=== PATIENT | male | born 1975 | race Caucasian/White ===

== ENCOUNTER 2019-08-24 10:09 | Emergency (ER) | payer BC, SELFPAY ==
[2019-08-24 10:11] VITALS: BP 150/94; PULSE 110; RESP 18; TEMP 36.9; O2SAT 97; BMI 34.3
[2019-08-24 10:17] VITALS: O2SAT 96
--- NOTE | 2019-08-24 10:25 | RAD_ITS ---
STUDY: X-RAY CHEST REASON FOR EXAM: Male, 44 years old. Chest pain. TECHNIQUE: Single AP portable view of the chest. COMPARISON: None. FINDINGS: There is minimal subsegmental atelectasis in the left lung base. There is no demonstrated pleural abnormality. Normal size heart. Normal mediastinum and derick. Normal visualized pulmonary arteries. Normal visualized aortic arch and descending thoracic aorta. The thoracic spine is suboptimally visualized. Normal visualized ribs, clavicles, and shoulders. There is no demonstrated abnormality of the visualized soft tissue structures of the upper abdomen. RAD/Chest 1 View (Portable) IMPRESSION: Minimal atelectatic changes in the left lung base. Electronically Signed: Dennis Peralta MD at 10:38 EST Tel , Service support ,
--- NOTE | 2019-08-24 10:25 | EKG12_ITS ---
Test Reason : CP Blood Pressure : / mmHG Vent. Rate : 112 BPM Atrial Rate : 112 BPM P-R Int : 168 ms QRS Dur : 082 ms QT Int : 322 ms P-R-T Axes : 056 008 039 degrees QTc Int : 439 ms Sinus tachycardia Otherwise normal ECG Confirmed by LEXIE GUILLAUME, EMMANUELLE ([id number]), editor publications COLEEN REY ([id number]) on 08/26/2019 2:23:33 PM Referred By: ADELINE Confirmed By:EMMANUELLE OWEN MD
[2019-08-24 10:30] LABS: Absolute Neutrophil Count 6.2 X10^3/uL (2.0-7.7); Basophil# 0.02 X10^3/uL; Basophil% 0.2 % (0-1); Eosinophil# 0.02 X10^3/uL; Eosinophils% 0.2 % (0-5); Hematocrit 45.7 % (40-54); Hemoglobin 15.8 g/dL (13.0-16.5); Lymphocyte % 22.9 % (19-41); Mean Corp Hgb Conc 34.6 g/dL (32-36); Mean Corpuscular Hgb 31.5 pg (27.0-32.0); Mean Corpuscular Volume 91.2 fL (80-94); Mean Platelet Vol. 8.9 fl (6.2-12.0); Monocyte% 8.7 % (0-10); NRBC Flagged by Analyzer 0 % (0-5); Neutrophil # 6.18 X10^3/uL (2.7-7.7); Neutrophil % 67.6 % (47-70); Platelet Count 246 K/mm3 (150-450); RBC Distribution Width SD 40.3 fl (35.1-43.9); Red Blood Count 5.01 M/mm3 (4.6-6.2); White Blood Count 9.2 K/mm3 (4.4-11.0)
[2019-08-24 10:47] LABS: ALB/GLOB Ratio 1.1 RATIO (0.9-2.4); AST(SGOT) 21 U/L (15-37); Alanine Aminotransfer ALT/SGPT 38 U/L (16-61); Albumin, Serum 3.8 g/dL (3.2-5.0); Alkaline Phosphatase 105 U/L (45-117); Anion Gap 8 (5-15); BUN 13 mg/dL (7-18); BUN/Creat Ratio 11.5 RATIO (10-20); Calcium,Total 8.6 mg/dL (8.5-10.1); Chloride 107 mmol/L (98-107); Creatinine, Serum 1.13 mg/dL (0.70-1.30); EST Glomerular Filtration Rate 76 mL/min (>60); Est Glom Filt Rate - Afr Amer 91 mL/min (>60); Estimated Creatinine Clearance 85.16 ml/min; Globulin 3.4 g/dL (2.2-4.2); Glucose 140 mg/dL (74-106); Protein, Total 7.2 g/dL (6.4-8.2); Sodium Level 139 mmol/L (136-145)
--- NOTE | 2019-08-24 11:04 | CT_ITS ---
We are attempting to reach an attending provider to discuss findings. An addendum with communication details will be sent when the communication is complete. STUDY: CTA CHEST REASON FOR EXAM: Male, 44 years old. Acute onset of dyspnea and chest pain. Possible pulmonary embolism. RADIATION DOSAGE (If Supplied By Facility): CTDIvol = ( 15.04 ) mGy, DLP = ( 462.18 ) mGycm TECHNIQUE: The examination was performed with the intravenous administration of IV 100mL Isovue-370 100. Post-processing of the angiographic images was performed, with multiplanar reformation and 3D reconstruction. Individualized dose optimization techniques were used for this CT. COMPARISON: None. FINDINGS: Normal enhancement of the main pulmonary artery and right and left pulmonary arteries. There is limited enhancement of the bilateral peripheral pulmonary arteries. There is no demonstrated central pulmonary embolism. The peripheral branches are difficult to evaluate. There are filling defects in the peripheral branches particularly in the lower lobes suspicious for small pulmonary emboli. Normal thoracic aorta and visualized great vessels. There is no demonstrated aortic dissection. Normal heart and pericardium. Normal mediastinum. Normal hilar regions. Normal visualized trachea and bronchi. The lungs are well expanded. The lungs again demonstrate mild atelectatic changes in the lingula. No focal infiltrate is seen. There are hypoventilatory changes in the lung bases. There are no pleural effusions. Normal chest wall structures. Normal osseous structures. Normal visualized upper abdomen. CT/CTA Chest W/WO Contrast IMPRESSION: 1. No evidence of central pulmonary embolism. Suspicious for small pulmonary emboli in the peripheral branches of both lower lobes. 2. Mild atelectatic changes. No infiltrate is seen. 3. No evidence of pleural effusions. Electronically Signed: Dennis Peralta MD at 11:51 EST Tel , Service support ,
--- NOTE | 2019-08-24 11:06 | ED.DCSUM_ITS ---
- ER Visit Summary Date of Service: 08/24/19 Chief Complaint: Chest pain History of Present Illness: The patient is a 44 M who presents emergency department for chest tightness/pain. Symptoms began last night at approximately 2300 hrs. He was unable to sleep for most of the night. He states that it does not radiate. Denies any cough he does note a sensation of shortness of breath. He drives short haul trips. No leg swelling. No prior history of DVT or PE. Denies any arm or leg symptoms. No nausea vomiting. He denies any medical problems. Physical Examination: Afebrile vital signs are stable. Noted heart rate of 110. Gen: Well-nourished well-developed Head: Normocephalic atraumatic Eyes: Perrl EOMI ENT: TMs clear no rhinorrhea moist mucous membranes Neck: Supple no lymphadenopathy no JVD nontender CVS: Regular rate rhythm no murmurs normal S1-S2 Respiratory: No distress clear to auscultation bilaterally chest nontender Abdomen: Soft nontender nondistended normal bowel sounds no masses Back: Nontender Extremity: Nontender no edema Skin: Normal color no rash Neuro: alert orientated ?3 CN II-XII intact normal strength sensation reflexes gait cerebellar Psych: Normal affect normal mood Test Results: Chest x-ray showed possible atelectatic changes in the left base. CBC BMP with glucose 140. Troponin negative. CTA of the chest was obtained as he is not PERC negative and Wells criteria places him at moderate risk for PE. This was positive for small peripheral pulmonary embolism. Emergency Department Course and Treatment: This negative troponin represents over 11 hours of constant symptoms. EKG demonstrates no heart strain. He ambulates at about 98% with no significant dyspnea or complications. I believe the patient can be safely discharged home on Xarelto. He has no primary care physician and Dr. Sharma is next on no doc. I will contact her to help arrange follow-up. Patient and family are comfortable with her plan. Impression: 1. Pulmonary embolism This note was generated with [employer] dictation software. It may contain incorrect words, spelling, and punctuation that were not noted in review of the chart prior to signing ED Disposition - Plan for ED Patient: Disposition: Home or Assisted Living Instructions: Pulmonary Embolism Prescriptions: Hydrocodone Bitart/Apap 5-325 [[place] 5MG-325MG] 1 tab PO Q6H PRN PRN 3 Days #12 tab PRN Reason: Pain Prescription Printed Rivaroxaban [Xarelto] 15 mg PO BID #42 tab Prescription Printed Referrals: Sindy Moya MD [STAFF PHYSICIAN] - As soon as possible
[2019-08-24 12:59] VITALS: O2SAT 98
[2019-08-24 13:40] VITALS: BP 123/88; PULSE 84; PULSE 87; RESP 14; RESP 17; O2SAT 98
[2019-08-24] MEDS: HYDROcodone Bitartrate/Apap 5/325 Tablet PO (13:44)
[2019-08-24] MEDS: Rivaroxaban 15 MG Tablet PO (13:46)
[2019-08-24 13:54] VITALS: BP 127/85; PULSE 89; RESP 18; O2SAT 98
== END 2019-08-24 13:54 | disposition home or self-care (01) ==
PROVIDERS: Emergency Provider Emergency Medicine
DX: I26.99 Other pulmonary embolism without acute cor pulmonale (principal)
CPT/HCPCS: 71045; 71275; 80053; 84484; 85025; 93005; 99285; Q9967; A4216